=== PATIENT | male | born 1945 | race Caucasian/White ===

== ENCOUNTER → 2016-08-24 | Outpatient (CLI) | payer OTHER ==
[2016-08-24 07:22] LABS: HEMOGLOBIN A1C 8.04 % (4.2-6.0); MEAN BLOOD GLUCOSE (CALC) 181.732 mg/dL
[2016-08-24 07:26] LABS: CREATININE, URINE 93.8 MG/DL (15-500)
== END ==
LOC: LAB 06:54
PROVIDERS: ATTEND Internal Medicine
DX: E11.9 Type 2 diabetes mellitus without complications (principal); Z79.4 Long term (current) use of insulin
CPT/HCPCS: 36415; 82043; 83036

== ENCOUNTER → 2016-08-26 | Outpatient (CLI) | payer OTHER | LOC: MMPC 11:11 | PROVIDERS: ATTEND Internal Medicine | DX: E11.9 Type 2 diabetes mellitus without complications (principal); K59.00 Constipation, unspecified; Z87.19 Personal history of other diseases of the digestive system; I10 Essential (primary) hypertension | CPT/HCPCS: 99214; G0463 ==

== ENCOUNTER → 2016-09-02 | Outpatient (CLI) | payer OTHER | LOC: MMPC 11:11 | PROVIDERS: ATTEND Surgery | DX: Z86.010 Personal history of colon polyps (principal); K62.5 Hemorrhage of anus and rectum; K92.1 Melena | CPT/HCPCS: 99202; G0463 ==

== ENCOUNTER 2016-09-09 08:33 | Day surgery (SDC) | payer OTHER ==
[~2016-09-09 08:33] MED LIST: LIDOCAINE 2% VISCOUS(20 MG/1 ML) - 15 ML UD CUP PO ONE; LIDOCAINE HCL/PF 2% (20 MG/ML) - 5 ML SYRINGE ONE; LIDOCAINE W/ SODIUM BICARB 0.5 ML SYR ONE; Lactated Ringers 1,000 ML PRIMARY IV ONE; MIDAZOLAM 5 MG/1 ML ONE; fentaNYL Inj 100 MCG/2 ML VIAL ONE
--- NOTE | 2016-09-09 10:42 | GEN.OPNOTE ---
EGD / Colonoscopy Report Surgery Date: 09/09/16 Preoperative Diagnosis: GERD. History of ulcers. Personal history of colon polyps. Bright red blood per rectum. Melanotic stools. Postoperative Diagnosis: Same. With gastric antral ulcers. Procedure: #1 esophagogastroduodenoscopy with biopsy. #2 complete colonoscopy. Surgeon: Ishan Escobar MD Anesthesia Provider: Zhao Aguilar CRNA Anesthesia Type: MAC Indications: See preoperative diagnosis. EGD Findings: Esophagus: [Normal] GE Junction : [Slightly irregular Z line.] Fundus : [Normal] Body : [Normal] Prepyloric : [Multiple small prepyloric ulcers. Clots in the bases.] Small Intestine : [Normal] A lubricated flexible upper endoscope was inserted and passed through the esophagus and stomach into the duodenum. The duodenum and duodenal bulb were unremarkable. The pyloric channel was widely patent. In the antrum there were 4-5 small punctate ulcers with clotted blood in the base. Multiple biopsies were taken. Hemostasis was assured. The scope was retroflexed. The upper body and fundus of the stomach were unremarkable. The scope was straightened and withdrawn into the distal esophagus. There is some mild irregularity at the Z line. Multiple biopsies were taken. Hemostasis was assured. The scope was withdrawn through the remainder of a normal-appearing esophagus and brought through the hypopharynx under suction completing that portion of the procedure. Colonoscopy Findings: Prep : [Very good] Cecum : [Normal] Ascending : [Normal] Transverse : [Normal] Sigmoid : [Normal] Rectum : [Normal with mild hemorrhoid] Digital Rectal Exam : [Normal. Prostate slightly enlarged. No nodules.] A lubricated flexible colonoscope was inserted and passed to the blind end of the cecum. The ileocecal valve and blind end of the cecum were clearly seen. Air was aspirated as the scope was withdrawn. The entire colonoscopy was normal without polyp, tumor, neoplastic mass, infectious or inflammatory process. The scope was withdrawn completing the procedure. Patient tolerated the procedure well without complication. He was taken to outpatient surgery in stable condition. We will call the biopsy results when available and plan therapy and follow-up accordingly. Patient is not on a proton pump inhibitor and we will start him on the pantoprazole 40 mg by mouth daily at this time.
[2016-09-09 11:45] VITALS: RESP 16
[2016-09-09 11:50] VITALS: TEMP 96.8
== END 2016-09-09 11:20 | disposition home or self-care (01) ==
LOC: SDSC 08:33
PROVIDERS: ATTEND Surgery
DX: Z86.010 Personal history of colon polyps (principal); K62.5 Hemorrhage of anus and rectum; K92.1 Melena; K21.9 Gastro-esophageal reflux disease without esophagitis; K25.9 Gastric ulcer, unspecified as acute or chronic, without hemorrhage or perforation
CPT/HCPCS: 43239; 45378; J2704; J3010; J2001; J2250; J7120

== ENCOUNTER → 2016-09-29 | Outpatient (CLI) | payer OTHER | LOC: MMPC 11:11 | PROVIDERS: ATTEND Internal Medicine | DX: E11.9 Type 2 diabetes mellitus without complications (principal); I10 Essential (primary) hypertension; K59.00 Constipation, unspecified; Z87.19 Personal history of other diseases of the digestive system | CPT/HCPCS: 99214; G0463 ==

== ENCOUNTER → 2016-09-30 | Outpatient (CLI) | payer OTHER | LOC: MMPC 11:11 | PROVIDERS: ATTEND Surgery | DX: B96.81 Helicobacter pylori [H. pylori] as the cause of diseases classified elsewhere (principal); K29.00 Acute gastritis without bleeding; K25.9 Gastric ulcer, unspecified as acute or chronic, without hemorrhage or perforation; K21.9 Gastro-esophageal reflux disease without esophagitis; Z86.010 Personal history of colon polyps | CPT/HCPCS: 99212; G0463 ==

== ENCOUNTER → 2017-02-18 | Outpatient (CLI) | payer OTHER ==
[2017-02-18 08:49] LABS: BUN/CREATININE RATIO 22.22 (6-20); CALCIUM 9.1 mg/dL (8.7-10.7); CHOL/HDL RATIO 3.11 RATIO (0-4.0); LDL CHOLESTEROL,CALCULATED 51.6 mg/dL; SERUM ALBUMIN 3.8 g/dL (3.5-4.8)
[2017-02-18 09:12] LABS: BASOPHILS # (AUTO) 0.06 10*3/UL; BASOPHILS % (AUTO) 0.9 % (0-1); EOSINOPHILS # (AUTO) 0.56 10*3/UL; EOSINOPHILS % (AUTO) 8.2 % (0-8); HEMATOCRIT 44.5 % (42.0-52.0); HEMOGLOBIN 14.6 g/dL (14.0-18.0); LYMPHOCYTES # (AUTO) 1.54 10*3/uL; MEAN CORPUSCULAR HEMOGLOBIN 28.8 PG (27-31); MEAN CORPUSCULAR HGB CONC 32.8 g/dL (33-37); MEAN CORPUSCULAR VOLUME 87.8 FL (80-90); MEAN PLATELET VOLUME 10.6 FL (7.4-12.2); MONOCYTES # (AUTO) 0.86 10*3/UL (0.3-0.8); MONOCYTES % (AUTO) 12.5 % (5-15); NEUTROPHILS # (AUTO) 3.83 10*3/UL; NEUTROPHILS % (AUTO) 55.9 % (50-80); RED BLOOD COUNT 5.07 10^6/uL (4.70-6.10)
[2017-02-18 09:16] LABS: PLATELET MORPHOLOGY COMMENT NORMAL MORPHOLOGY (NORM); RBC MORPHOLOGY COMMENT NORMAL MORPHOLOGY (NORM); WBC MORPHOLOGY COMMENT NORMAL MORPHOLOGY (NORM)
[2017-02-18 10:49] LABS: CREATININE, URINE 147.9 MG/DL (15-500); HEMOGLOBIN A1C 6.67 % (4.2-6.0)
== END ==
LOC: LAB 07:20
PROVIDERS: ATTEND Internal Medicine
DX: E11.9 Type 2 diabetes mellitus without complications (principal); E78.5 Hyperlipidemia, unspecified; I10 Essential (primary) hypertension; Z79.4 Long term (current) use of insulin; Z12.5 Encounter for screening for malignant neoplasm of prostate
CPT/HCPCS: 80053; 80061; 82043; 83036; 85025; G0103

== ENCOUNTER → 2017-02-22 | Outpatient (CLI) | payer OTHER | LOC: MMPC 11:11 | PROVIDERS: ATTEND Internal Medicine | DX: E11.9 Type 2 diabetes mellitus without complications (principal); I10 Essential (primary) hypertension; E78.5 Hyperlipidemia, unspecified; H91.93 Unspecified hearing loss, bilateral | CPT/HCPCS: 99214; G0463 ==